=== PATIENT | female | born 1995 | race Two or more races ===

== ENCOUNTER 2025-10-22 17:03 | Emergency (ER) | payer MEDICAID ==
[~2025-10-22] VITALS: Ht 172.7 cm; Wt 82.0 kg
[2025-10-22 17:13] VITALS: O2SAT 98
[2025-10-22 18:01] LABS: *AMPHETAMINES SCREEN URINE NEGATIVE (NEGATIVE); *BARBITURATES SCREEN URINE NEGATIVE (NEGATIVE); *BENZODIAZEPINES SCREEN URINE NEGATIVE (NEGATIVE); *COCAINE SCREEN URINE NEGATIVE (NEGATIVE)
[2025-10-22 18:02] LABS: CANNABINOID URINE SCREEN PRESUMPTIVE POSITIVE (NEGATIVE); ECSTASY MDMA SCREEN URINE NEGATIVE (NEGATIVE); METHADONE URINE SCREEN NEGATIVE (NEGATIVE); OPIATES URINE SCREEN NEGATIVE (NEGATIVE); PHENCYCLIDINE URINE SCREEN NEGATIVE (NEGATIVE)
[2025-10-22 18:08] LABS: BASOPHILS % 0.6 % (0.0-2.0); EOSINOPHILS % 0.3 % (0.0-5.0); HEMATOCRIT. 43.1 % (36.0-48.0); HEMOGLOBIN. 14.4 g/dL (12.0-16.0); LYMPHOCYTES % 18.5 % (20.0-50.0); MEAN PLATELET VOLUME 8.4 fl (7.4-10.4); MONOCYTES % 10.0 % (2.0-8.0); NEUTROPHILS % 70.6 % (40.0-76.0); PLATELET 272 x1000/uL (130-400); RED BLOOD CELL COUNT 4.48 mill/uL (4.2-5.4); RED CELL DISTRIBUTION WIDTH 13.6 % (11.6-14.6)
[2025-10-22 18:27] LABS: HCG SCREEN NEGATIVE
[2025-10-22 18:29] LABS: CREATININE 0.8 mg/dL (0.6-1.0); UREA NITROGEN BLOOD 6 mg/dL (9-23)
[2025-10-22 18:30] LABS: ETHANOL BLOOD < 10 mg/dL (<10); PROTEIN TOTAL 7.9 g/dL (6.0-8.3)
[2025-10-22 18:31] LABS: ASPARTATE AMINOTRANSFERASE 19 IU/L (<34); BILIRUBIN DIRECT 0.1 mg/dL (<=3.0)
[2025-10-22 18:32] LABS: BILIRUBIN TOTAL 0.5 mg/dL (0.1-1.0)
[2025-10-22 23:45] LABS: CLARITY URINE CLOUDY (CLEAR); COLOR URINE YELLOW (YELLOW); GLUCOSE URINE NEGATIVE (NEGATIVE); KETONES URINE 2+ (NEGATIVE); LEUKOCYTE ESTERASE URINE TRACE (NEGATIVE); NITRITE URINE POSITIVE (NEGATIVE); OCCULT BLOOD URINE NEGATIVE (NEGATIVE); PH URINE 6.5 (4.5-8.0); PROTEIN URINE 1+ (NEGATIVE); SPECIFIC GRAVITY URINE 1.030 (1.005-1.030); UROBILINOGEN URINE 1.0 E.U./dL (0.2-1.0)
[2025-10-23 00:30] LABS: WBC URINE 0-2 /hpf (0-2)
[2025-10-23 00:31] LABS: RBC URINE 0-2 /hpf (0-2); SQUAMOUS EPITHELIAL CELL URINE 3+ /lpf (RARE/1+)
[2025-10-23 00:32] LABS: BACTERIA URINE 4+
[2025-10-23] MEDS: CEPHALEXIN 250MG CAPSULE PO ONE (11:46)
[2025-10-23 12:19] VITALS: BP 122/76; PULSE 99; RESP 18; TEMP 36.8; O2SAT 100
== END 2025-10-23 12:29 ==
LOC: ER 17:03
DX: S60.811A Abrasion of right wrist, initial encounter (principal); Z88.0 Allergy status to penicillin; Z79.899 Other long term (current) drug therapy; Z20.822 Contact with and (suspected) exposure to COVID-19; X58.XXXA Exposure to other specified factors, initial encounter; Y93.89 Activity, other specified; Y92.89 Other specified places as the place of occurrence of the external cause; Y99.8 Other external cause status
CPT/HCPCS: 36415; 80048; 80076; 80305; 80307; 80320; 80329; 81003; 83735; 84703; 85025; 87426; 99285; G0480